=== PATIENT | female | born 1965 | race Caucasian/White ===

== ENCOUNTER 2017-12-19 16:16 | Emergency (ER) | payer OTHER ==
--- NOTE | 2017-12-19 16:26 | PDOC ---
Rapid Medical Evaluation Time Seen by Provider: 12/19/17 16:22 Medical Evaluation: 12/19/17 16:23 The patient presents with a chief complaint of: Rash on neck and back for 10 days. Itchy when water hits it. Using calomine lotion with little relief. I have performed a brief in-person evaluation of this patient; Pertinent physical exam findings: ambulatory, in no respiratory distress. Flaking macular/patchy rash around the neck and to the shoulders b/l. Skin cracking to the back of the neck I have ordered the following: Nothing The patient will proceed to the ED for further evaluation.
[2017-12-19 16:27] VITALS: BP 144/83; PULSE 104; TEMP 98.1; BMI 39.1
--- NOTE | 2017-12-19 17:36 | PDOC ---
History of Present Illness - General Chief Complaint: Rash Stated Complaint: RASH Time Seen by Provider: 12/19/17 16:22 History Source: Patient Exam Limitations: No Limitations - History of Present Illness Initial Comments: 12/19/17 20:10 Patient came for evaluation of severe excoriated and weeping rash around her neck that started approximately 2 weeks ago and is progressively worsened to where now has serous and yellow drainage and pain. States rashes extended down to her back in her chest wall and is itchy in nature. Has been seen on multiple occasions at [facility] for frequent abscesses to her lower extremities. Has been told are MRSA lesions and was treated for one week with Keflex and Bactrim patient states those lesions resolved but had onset of rash to her back which is progressively worsened. Denies any medical ALLERGIES or any necklace problems, denies any changes in chemicals at home/cleaning agents or soaps. Denies fever but states has not felt well the past few days. Re-of eczema or other dermatologic disease besides the frequent Timing/Duration: reports: week Severity: Yes: mild, moderate Location: reports: face Respiratory Risk Factors: reports: no cause identified Associated Symptoms: reports: change in skin texture Past History - Travel Traveled outside of the country in the last 30 days: No Close contact w/someone who was outside of country & ill: No - Past Medical History Allergies/Adverse Reactions: Allergies Allergy/AdvReac Type Severity Reaction Status Date / Time iodine Allergy Verified 12/19/17 16:23 Home Medications: Ambulatory Orders Clindamycin [Cleocin -] 300 mg PO TID #21 capsule 12/19/17 Diphenhydramine HCl [Benadryl -] 25 mg PO Q8H PRN #21 capsule 12/19/17 Mupirocin Ointment [Bactroban 2% Ointment -] 1 applic TP BID #1 applic 12/19/17 COPD: No Other medical history: DENIES - Suicide/Smoking/Psychosocial Hx Smoking History: Never smoked Have you smoked in the past 12 months: Yes Number of Cigarettes Smoked Daily: 10 Information on smoking cessation initiated: No Review of Systems - Review of Systems Able to Perform ROS?: Yes Is the patient limited Syriac proficient: Yes Constitutional: Yes: Symptoms Reported, See HPI, Malaise HEENTM: No: Symptoms Reported Respiratory: No: Symptoms reported Integumentary: Yes: Symptoms Reported, See HPI, Lesions (healing MRSA lesions to legs, no open wounds.), Pruritus, Rash, Other (worsening pruritic rash extending down to waist on back, and chest wall. Also excoriated and weeping lesions around neck) *Physical Exam - Vital Signs Last Vital Signs Temp Pulse Resp BP Pulse Ox 98.1 F 104 H 17 144/83 98 12/19/17 16:23 12/19/17 16:23 12/19/17 16:23 12/19/17 16:23 12/19/17 16:23 - Physical Exam General Appearance: Yes: Nourished, Appropriately Dressed, Apparent Distress HEENT: positive: TODD, TMs Normal. negative: Sinus Tenderness Neck: positive: Supple, Other (agent has significant and severe keratinization, darkening, and weeping impetigo appearing rash around back of neck with honey crusted lesions. Extends from base of scalp to upper scapular area and around to collarbone bilaterally. And a collar type pattern. Back rash is a maculopapular erythematous rash discrete lesions, nonvesicular, and weeping on torso.) Respiratory/Chest: positive: Lungs Clear, Normal Breath Sounds Gastrointestinal/Abdominal: positive: Soft. negative: Tender Extremity: positive: Normal Capillary Refill, Swelling. negative: Normal Inspection Integumentary: positive: Pale Neurologic: positive: lumber mover II-XII NML intact, Fully Oriented, Alert, Normal Mood/ Affect, Normal Response, Motor Strength 5/5 Progress Note - Progress Note Progress Note: Significant impetigo with baseline probable exzematous rash around neck with weeping lesions consistent with impetigo as well as primary urticarial versus dermatitis rash covering torso. We will treat with Bactroban on impetigo rash, will give Benadryl for itching, encourage clindamycin to treat MRSA probability and have follow-up with *DC/Admit/Observation/Transfer Diagnosis at time of Disposition: Impetigo, Dermatitis - Discharge Dispostion Disposition: HOME Condition at time of disposition: Stable Admit: No - Prescriptions Prescriptions: Clindamycin [Cleocin -] 300 mg PO TID #21 capsule Diphenhydramine HCl [Benadryl -] 25 mg PO Q8H PRN #21 capsule PRN Reason: sneezing/cough Mupirocin Ointment [Bactroban 2% Ointment -] 1 applic TP BID #1 applic - Referrals - Patient Instructions Printed Discharge Instructions: 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), DI for Atopic Dermatitis - Adult Additional Instructions: Rest, keep cool and dry- avoid strenuous activity or hot /humid environments Less hot showers, no abrasive soaps May use heavy creams like Eucerin or Cetaphil to keep skin moist May apply Aveeno, calamine lotion, [id number] hydrocortisone creams as needed for symptoms May use Benadryl at night for antihistamine, Zyrtec/ Benita or Claritin for daytime antihistamine use to help with itching May use [id number] hydrocortisone cream on all areas except face Bactroban ointment twice a day to all affected areas CLindamycin 300mg 1 tab every 8 hours for 1 week Benadryl 1 tab every 8 hours for severe itching Try to identify cause for rash and avoid exposures Followup with PMD in one week if no resolution Make appointment with clinical nursing assistant for evaluation when possible - Post Discharge Activity Forms/Work/School Notes: Back to Work
[2017-12-19] MEDS ORDERED: DEXAMETHASONE SOD PHOSPHATE 10 MG/1 ML VIAL ONE (17:37)
[2017-12-19] MEDS ORDERED: DEXAMETHASONE SOD PHOSPHATE 10 MG/1 ML VIAL IM ONE (17:37)
== END 2017-12-19 18:03 | disposition home or self-care (01) ==
LOC: JERFT 16:16
PROC: 3E0233Z Introduction of Anti-inflammatory into Muscle, Percutaneous Approach (ICD-10-PCS; principal; 2017-12-19)
DX: L01.09 Other impetigo (principal); Z86.14 Personal history of Methicillin resistant Staphylococcus aureus infection
CPT/HCPCS: 99281-25; J1100